=== PATIENT | male | born 1985 | race Caucasian/White ===

== ENCOUNTER 2019-02-06 18:37 | Emergency (ER) | payer MEDICAID ==
[~2019-02-06] VITALS: Ht 175.3 cm; Wt 98.6 kg
[2019-02-06 18:42] VITALS: BP 164/97
[2019-02-06] MEDS ORDERED: AMOX-580 PO (21:43)
== END 2019-02-06 21:51 | disposition home or self-care (01) ==
LOC: ER 18:37
DX: K02.9 Dental caries, unspecified (principal); K03.81 Cracked tooth; Z79.899 Other long term (current) drug therapy
CPT/HCPCS: 99283